=== PATIENT | female | born 1990 | race Caucasian/White ===

== ENCOUNTER 2017-08-06 05:53 | Inpatient (IN) | payer MEDICAID, OTHER ==
[~2017-08-06] VITALS: Ht 165.1 cm; Wt 90.0 kg
[2017-08-06 06:28] LABS: DAU SCREEN DISCLAIMER
[2017-08-06] MEDS ORDERED: LACTATED RINGERS 1,000 ML IVBOLUS ONE (06:30)
[2017-08-06] MEDS ORDERED: OXYTOCIN 30U/ 0.9% NaCL 500ML 500 ML ONE ×2 (06:32→07:24)
[2017-08-06] MEDS ORDERED: LACTATED RINGERS 1,000 ML IV SCH (06:33)
[2017-08-06] MEDS ORDERED: OXYTOCIN 30U/ 0.9% NaCL 500ML 500 ML IV ONE (06:33)
[2017-08-06] MEDS ORDERED: D5%-LACTATED RINGERS 1,000 ML IV SCH (06:33)
[2017-08-06 06:34] LABS: PATH.CAST-FLAG NOT PRESENT; SPERM-FLAG NOT PRESENT; SRC-FLAG NOT PRESENT; XTAL-FLAG NOT PRESENT; YLC-FLAG NOT PRESENT
[2017-08-06] MEDS ORDERED: MISOPROSTOL 200 MCG TABLET ONE ×2 (06:43→06:44)
[2017-08-06] MEDS ORDERED: LIDOCAINE 1%, 10ML ONE (06:43)
[2017-08-06] MEDS ORDERED: NEWBORN KIT ONE (06:45)
[2017-08-06] MEDS ORDERED: FENTANYL PF 100 MCG/2ML IVPush PRN (07:00)
[2017-08-06] MEDS ORDERED: ONDANSETRON 2MG/ML, 2ML IVPush PRN (07:00)
[2017-08-06] MEDS ORDERED: FENTANYL PF 100 MCG/2ML IV PRN (07:00)
[2017-08-06 07:03] LABS: WHITE BLOOD COUNT 12.6 x10^3/uL (3.4-10)
[2017-08-06] MEDS ORDERED: IBUPROFEN 600 MG TABLET ONE (07:24)
[2017-08-06] MEDS: OXYTOCIN 30U/ 0.9% NaCL 500ML 500 ML IV SCH ×2 (07:45→17:56)
[2017-08-06] MEDS: IBUPROFEN 600 MG TABLET PO PRN (07:45)
[2017-08-06] MEDS ORDERED: CARBOPROST TROMETHAMINE 250 MCG/ML, 1ML IM PRN (08:00)
[2017-08-06] MEDS ORDERED: ACETAMINOPHEN 325 MG TABLET PO PRN (08:00)
[2017-08-06] MEDS ORDERED: OXYcodone/APAP 5/325MG TABLET PO PRN (08:00)
[2017-08-06] MEDS ORDERED: OXYTOCIN 10 UNITS/ML, 1ML IM PRN (08:00)
[2017-08-06] MEDS ORDERED: MISOPROSTOL 200 MCG TABLET PR PRN (08:00)
[2017-08-06] MEDS ORDERED: METHYLERGONOVINE 0.2 MG/ML IM PRN (08:00)
[2017-08-06] MEDS ORDERED: DOCUSATE 100 MG CAPSULE PO PRN (08:00)
[2017-08-06] MEDS ORDERED: ONDANSETRON 2MG/ML, 2ML IV PRN (08:00)
[2017-08-06] MEDS ORDERED: HYDROcodone/APAP 5/325 TABLET PO PRN ×2 (08:00)
[2017-08-06 08:07] LABS: HIV 1&2 ANTIBODY SCREEN Nonreactive (Nonreactive); HIV-1 p24 ANTIGEN Nonreactive (Nonreactive)
[2017-08-06 08:13] LABS: ASPARTATE AMINO TRANSFERASE 10 U/L (15-37); BLOOD UREA NITROGEN 8 mg/dL (7-18)
[2017-08-06] MEDS ORDERED: MISOPROSTOL 200 MCG TABLET PR ONE (09:00)
[2017-08-06] MEDS: PRENATAL VIT/IRON/FA 1 EACH TABLET PO SCH (09:00)
[2017-08-06 09:35] VITALS: BP 138/84
[2017-08-06 12:08] VITALS: BP 141/87
[2017-08-06 15:00] LABS: HEMATOCRIT 35.9 % (34.6-47.8); HEMOGLOBIN 12.1 g/dL (11.7-16.4); WHITE BLOOD COUNT 14.6 x10^3/uL (3.4-10)
[2017-08-06 16:00] VITALS: BP 132/82
[2017-08-06 21:35] VITALS: BP 136/82
[2017-08-07] MEDS: IBUPROFEN 600 MG TABLET PO PRN ×2 (00:17→09:17)
[2017-08-07 00:20] VITALS: BP 111/57
[2017-08-07 03:35] VITALS: BP 122/73
[2017-08-07] MEDS: OXYTOCIN 30U/ 0.9% NaCL 500ML 500 ML IV SCH (03:56)
[2017-08-07 08:10] VITALS: BP 131/85
[2017-08-07] MEDS: PRENATAL VIT/IRON/FA 1 EACH TABLET PO SCH (09:17)
[2017-08-07] MEDS ORDERED: HYDR-3240 PO (14:49)
[2017-08-07] MEDS ORDERED: SENN-1 PO (14:49)
[2017-08-07] MEDS ORDERED: IBUP-1222 PO (14:49)
== END 2017-08-07 17:54 | disposition home or self-care (01) | DRG 775 ==
LOC: LDOP 05:53 → LDIP 06:42 → 2NW 09:26
PROVIDERS: ADMIT Obstetrics & Gynecology; ATTEND Obstetrics & Gynecology
PROC: 0HQ9XZZ Repair Perineum Skin, External Approach (ICD-10-PCS; principal; 2017-08-06)
PROC: 10E0XZZ Delivery of Products of Conception, External Approach (ICD-10-PCS; 2017-08-06)
PROC: 10907ZC Drainage of Amniotic Fluid, Therapeutic from Products of Conception, Via Natural or Artificial Opening (ICD-10-PCS; 2017-08-06)
DX: O36.5930 Maternal care for other known or suspected poor fetal growth, third trimester, not applicable or unspecified (principal); O70.0 First degree perineal laceration during delivery; Z37.0 Single live birth; Z3A.40 40 weeks gestation of pregnancy; O76 Abnormality in fetal heart rate and rhythm complicating labor and delivery; O77.0 Labor and delivery complicated by meconium in amniotic fluid; Z59.9 Problem related to housing and economic circumstances, unspecified
CPT/HCPCS: 36415; 80053; 80307; 81001; 82248; 82803; 84550; 85025; 85027; 86592; 86703; 86762; 86850; 86900; 87086; 87340; 87899; 88307; G0435; G0479; J2590; J7120